=== PATIENT | female | born 1935 | race Two or more races ===

== ENCOUNTER 2017-12-22 14:28 | Inpatient (IN) | payer MEDICAID, OTHER ==
--- NOTE | 2017-12-22 15:11 | EDPHY ---
H & P Stated Complaint: Left hip pain - Personal History Current Tetanus/Diphtheria Vaccine: Yes - Medical/Surgical History Hx Asthma: No Hx Chronic Respiratory Disease: No Hx Diabetes: No Hx Cardiac Disease: Yes Hx Renal Disease: No Hx Cirrhosis: No Hx Alcoholism: No Other PMH: Alzheimer's - Social History Smoking Status: Never smoked Time Seen by Provider: 12/22/17 14:49 HPI/ROS: CHIEF COMPLAINT: Left lower extremity pain HISTORY OF PRESENT ILLNESS: 82-year-old female history of dementia arrives via private vehicle with family who drove the patient up from [place] yesterday. Patient has a history of dementia. The daughter lives in the [place] area and learned that the patient was having progressive difficulty in ambulating while in [place]. Unknown if history of trauma or not although new ecchymosis was noted to her left lower extremity. The daughter has relocated the patient to [place], attempted to have her fly from [place] however this was not possible due to her left hip pain and patient was subsequently driven and arrived last night. The patient is unable to bear any weight in the family states that they are unable to care for her due to her left lower extremity pain. There are no reports of head or other injury. Family notes that she is mentating at baseline PRIMARY CARE PROVIDER: In [place] REVIEW OF SYSTEMS: 10 systems reviewed and negative with the exception of the elements mentioned in the history of present illness PAST MEDICAL & SURGICAL HISTORY: Hypertension. Hyperlipidemia. Dementia. cholecystectomy SOCIAL HISTORY: Relocated from [place] less than 24 hr ago PHYSICAL EXAM (Prior to examination, patient consented to physical exam, hands were washed and my usual and customary physical exam procedures followed) 1) GENERAL: Well-developed, well-nourished, alert and oriented. Appears to be in no acute distress. 2) HEAD: Normocephalic, atraumatic 3) HEENT: Pupils equal, round, reactive to light bilaterally. Sclera anicteric. 4) NECK: Full range of motion, no meningeal signs. 5) LUNGS: Clear auscultation bilaterally, no wheezes, no rhonchi, no retractions. 6) HEART: Regular rate and rhythm, no murmur, no heave, no gallop. 7) ABDOMEN: No guarding, no rebound, no focal tenderness, negative McBurney's, negative Chin's, negative Rovsing's, negative peritoneal sign, 8) MUSCULOSKELETAL: Left lower extremity: Tender to palpation left buttock with associated ecchymosis and soft compartments, tender to palpation left greater trochanteric region with no visible signs of trauma to said location, tender to palpation mid lateral femur with ecchymosis, tender to palpation left lateral knee with no visible signs of trauma. Soft compartments throughout. Distally nontender with DP PT pulses present and brisk. No shortening or malrotation. Otherwise, Moving all extremities, no focal areas of tenderness, no obvious trauma. No peripheral edema or discoloration. 9) BACK: No CVA tenderness, no midline vertebral tenderness, no fluctuance, no step-off, no obvious trauma, no visual or palpable abnormality. 10) SKIN: No rash, no petechiae. 11) Psychiatric: Patient is oriented X 3, there is no agitation. DIFFERENTIAL DIAGNOSIS: In no particular order including but not limited to fracture, sprain, strain, dislocation, failure to thrive (Abigail,Devon Rebecca) Constitutional: Initial Vital Signs Temperature (C) 36.6 C 12/22/17 14:39 Heart Rate 110 H 12/22/17 14:39 Respiratory Rate 18 12/22/17 14:39 Blood Pressure 141/86 H 12/22/17 14:39 O2 Sat (%) 98 12/22/17 14:39 O2 Delivery Mode Room Air Allergies/Adverse Reactions: No Known Allergies Allergy (Unverified 12/22/17 14:45) Home Medications: Medication Instructions Recorded Aspirin [Aspirin 81mg (*)] 81 mg PO DAILY 12/22/17 Atorvastatin Calcium [Lipitor 20 20 mg PO HS 12/22/17 mg (*)] Hydrocodone/APAP 5/325 [Fossil 1 tab PO Q6H PRN 12/22/17 5/325 (*)] LORazepam [Ativan (*)] 1 mg PO TID PRN 12/22/17 Lisinopril [Zestril 20 mg (*)] 20 mg PO DAILY 12/22/17 Metoprolol Succinate Xr [Toprol Xl 50 mg PO DAILY 12/22/17 50 mg (*)] Pantoprazole Sodium [Protonix 40mg 40 mg PO DAILY 11/06/18 (*)] Sertraline HCl [Zoloft 100mg (*)] 50 mg PO DAILY 12/22/17 Ticagrelor [Brilinta] 90 mg PO BID 12/22/17 Medical Decision Making - Diagnostics EKG Interpretation: EKG interpreted by me reveals normal sinus rhythm, rate 86, right bundle branch block. Interpretation: Abnormal EKG (Claire Vasquez) ED Course/Re-evaluation: This patient was seen and examined by me. She presents with advanced dementia and inability to ambulate. Complaining of left hip pain. X-ray reveals no evidence of fracture. She is also complaining of left lower quadrant pain. Abdomen is benign. Left lower extremity-multiple areas of ecchymosis anteriorly on the thigh, passive hip range of motion without apparent pain. I agree with [facility]' assessment and plan. (Claire Vasquez) 3:10 p.m.: Anticipate more than likely admission to the hospital as the patient is unable to ambulate, unable to care for herself. Patient is noted to have ecchymosis which appears subacute to the left lower extremity with associated pain. Will obtain imaging studies. Discussed case with secondary supervising physician Dr. Claire Vasquez in the ER and also consulted with the emergency department catalytic case operator 354 pm: Re-evaluation. Patient now complaining of abdominal pain. She is tender to palpation left lower quadrant. Will obtain CT imaging of abdomen pelvis evaluate possible intra-abdominal pathology such as diverticulitis as well as increased imaging the osseous structures 405 pm: Dr Vasquez consulted with hospitalist Dr Trivedi who will admit patient ( Devon Hayes) - Data Points Laboratory Results: Laboratory Results 12/22/17 15:30 12/22/17 15:30 Medications Given: Hydrocodone Bitart/Acetaminophen (Fossil 5/325) 1 tab PO Q6H PRN PRN Reason: Pain, Moderate Stop: 01/01/18 16:52 Last Admin: 12/23/17 16:16 Dose: 1 tab Aspirin (Aspirin) 81 mg PO DAILY WILBERTO Stop: 06/21/18 08:59 Last Admin: 12/23/17 10:14 Dose: 81 mg Atorvastatin Calcium (Lipitor) 20 mg PO HS WILBERTO Stop: 06/20/18 20:59 Last Admin: 12/23/17 20:20 Dose: 20 mg Enoxaparin Sodium (Lovenox) 40 mg SC DAILY WILBERTO Stop: 06/21/18 08:59 Last Admin: 12/23/17 10:20 Dose: 40 mg Lisinopril (Zestril) 20 mg PO DAILY WILBERTO Stop: 06/21/18 08:59 Last Admin: 12/23/17 10:14 Dose: 20 mg Lorazepam (Ativan) 1 mg PO TID PRN PRN Reason: Anxiety Stop: 06/20/18 16:52 Last Admin: 12/23/17 20:20 Dose: 1 mg Metoprolol Succinate (Toprol Xl) 50 mg PO DAILY WILBERTO Stop: 06/21/18 08:59 Last Admin: 12/23/17 10:15 Dose: 50 mg Miscellaneous Information (Patch Removal) 1 ea TD DAILY21 [facility] Stop: 06/21/18 20:59 Last Admin: 12/24/17 04:54 Dose: 1 ea Miscellaneous Medication (Icy Hot Lidocaine/Menthol 4%/1% Patch) 1 patch TD DAILY WILBERTO Stop: 06/21/18 16:14 Last Admin: 12/23/17 16:16 Dose: 1 patch Pantoprazole Sodium (Protonix) 40 mg PO DAILY WILBERTO Stop: 06/21/18 08:59 Last Admin: 12/23/17 10:16 Dose: 40 mg Senna/Docusate Sodium (Senokot-S) 1 - 2 tab PO BID WILBERTO PRN Reason: Protocol Stop: 06/21/18 20:59 Last Admin: 12/23/17 20:20 Dose: 2 tab Sertraline HCl (Zoloft) 50 mg PO DAILY WILBERTO Stop: 06/21/18 08:59 Last Admin: 12/23/17 10:16 Dose: 50 mg Ticagrelor (Brilinta) 90 mg PO BID WILBERTO Stop: 06/20/18 20:59 Last Admin: 12/23/17 20:20 Dose: 90 mg Discontinued Medications Influenza Virus Vaccine Quadrival (Flulaval Quad [id number] (6mo+)) 0.5 ml IM .ONCE ONE Stop: 12/23/17 17:01 Last Admin: 12/23/17 18:04 Dose: 0.5 ml Pneumococcal 13-Valent Conj Vacc (Prevnar 13 Syringe) 0.5 ml IM .ONCE ONE Stop: 12/23/17 17:01 Last Admin: 12/23/17 18:06 Dose: 0.5 ml Departure - Departure Disposition: [facility] [place] Inpatient Acute Clinical Impression: Left hip pain Condition: Fair
[2017-12-22 15:45] LABS: PLATELET COUNT 176 10^3/uL (150-400)
[2017-12-22] MEDS ORDERED: IOPAMIDOL (ISOVUE-300) 100 ML BTL ONE (16:12)
--- NOTE | 2017-12-22 16:18 | CPEKG ---
Test Reason : OPEN Blood Pressure : / mmHG Vent. Rate : 086 BPM Atrial Rate : 087 BPM P-R Int : 175 ms QRS Dur : 122 ms QT Int : 388 ms P-R-T Axes : 056 203 052 degrees QTc Int : 464 ms Sinus rhythm Right bundle branch block Confirmed by Claire Vasquez ([id number]) on 12/22/2017 4:18:34 PM Referred By: Confirmed By:Claire Vasquez
--- NOTE | 2017-12-22 16:29 | ASMTCMCOM ---
CM Note CM Note Notes: Patient is Slovak speaking only and is accompanied by her grandson and 2 of her 3 daughters. Alissa is the daughter patient is now living with in [place]. Per Alissa, patient usually gets around pretty well but they are uncertain as to how long patient has had pain/difficulty ambulating. Patient had been living with Alissa's sister in [place] and family literally drove patient (relocated) to [place] yesterday. At this time hip and knee x-rays are pending and family is aware that patient will likely be admitted. patient does have Medicare and financial counselor has been in to start process for [place] Medicaid. I disccused potential scenerios with Alissa regarding whether patient may/may not need surgery and/or what type of aftercare may be indicated. Family is adament about "taking care of mom (patient) at home". I assured Alissa that CM would work closely with them regarding discharge planning and informed her that if SNF was "suggested", for example, "after surgey", this would be a temporary situation until patient was strong enough to go home with HH services. Alissa states that she is able to be home with patient [employer] and will be available for coordination of discharge planning/care as needed CM to follow Date Signed: 12/22/2017 04:29 PM Electronically Signed By:Mary Munoz RN
[2017-12-22] MEDS ORDERED: ONDANSETRON 4 MG/2 ML VIAL IVP PRN (16:53)
--- NOTE | 2017-12-22 17:42 | GHP ---
DATE OF ADMISSION: 12/22/2017 CHIEF COMPLAINT: Unable to walk. HISTORY OF PRESENT ILLNESS: This is an 82-year-old Belarusian-speaking female who arrived from [place], [place] by car yesterday. She had been living with her daughter in [place] when her [place] based family moved her out to [place] since they did not think she was getting adequate care in [place]. Apparently, the patient has not been able to walk for 2 weeks. She has not had a witnessed fall, but they believe that she has sustained a fall. Her appetite has been decreased. She has had no nausea or vomiting. Her last bowel movement was yesterday. PAST MEDICAL HISTORY: 1. Dementia. 2. Coronary artery disease with stent placement. 3. Hypertension. 4. Cholecystectomy. HOME MEDICATIONS: Reviewed, refer to [facility] for details next. ALLERGIES: No known drug allergies. SOCIAL HISTORY: The patient denies any alcohol, tobacco or illicit drug use. FAMILY HISTORY: Reviewed and noncontributory. REVIEW OF SYSTEMS: A comprehensive 10-point review of systems was done and is negative except for as mentioned in the HPI and below. CONSTITUTIONAL: Denies fevers, chills or sweats. CARDIOVASCULAR: The patient denies chest pain. PULMONARY: No complaints. GI: The patient reports generalized abdominal pain. PHYSICAL EXAMINATION: VITAL SIGNS: Blood pressure 141/86, pulse of 110, respiratory rate 18,O2 saturation 98% on room air, temperature afebrile. GENERAL: No acute distress. Frail appearing. HEAD: Normocephalic, atraumatic. EYES: PERRLA. Sclerae are anicteric. MOUTH: Moist mucous membranes. NECK: Supple. No lymphadenopathy. CARDIOVASCULAR: S1, S2. No JVD. No lower extremity edema. PULMONARY: Lungs are clear. No wheezes, rales or rhonchi. ABDOMEN: Soft, mildly distended. There is no guarding or rebound tenderness. Normoactive bowel sounds. EXTREMITIES: No clubbing or cyanosis. There is some muscle wasting on the left side. The patient has pain with flexion and abduction of the right hip. NEUROLOGIC: Cranial nerves 2 through 12 are grossly intact. SKIN: There is ecchymosis over the left lower hip. DIAGNOSTICS: WBC 6.1, hemoglobin 12.7, hematocrit 37.9 and platelets 176. Sodium 135, potassium 4.5, chloride 100, CO2 25, BUN 19, creatinine 0.7 and glucose 108. Hip x-ray: Preliminary read by myself does not show an obvious fracture, however, her bones do appear to be hyperlucent. CT of the abdomen and pelvis is currently pending. EKG was visualized and reviewed. Heart rate 86 beats per minute with a right bundle branch block. No acute ischemic changes. ASSESSMENT AND PLAN: This 82-year-old female is presenting with: 1. Inability to walk due to left hip pain. 2. Adult failure to thrive. 3. History of coronary artery disease with stent placement. 4. History of hypertension. 5. History of hyperlipidemia. 6. History of dementia. PLAN: 1. Admit to inpatient status given the patient is not safe to send home due to her inability to ambulate. We will order PT and OT evaluation. 2. Followup CT of the abdomen and pelvis. 3. Continue home blood pressure medicines. 4. Continue statin. 5. Continue antiplatelet medications. 6. The patient requests to be full code status. ADDENDUM: CT shows multiple compression fractures as well as urinary retention. Will send for UA and culture. Consider further imaging of the spine as indicated if pain not improving /[id number]/MODL MTDD
[2017-12-22] MEDS: HYDROCODONE/APAP 5/325 TAB PO PRN (17:44)
[2017-12-22] MEDS: LORazepam 1 MG TAB PO PRN (20:57)
[2017-12-22] MEDS: ATORVASTATIN CALCIUM 20 MG TAB PO SCH (20:57)
[2017-12-22] MEDS: TICAGRELOR 90 MG TAB PO SCH (21:41)
--- NOTE | 2017-12-23 09:35 | HOSPPROG ---
Hospitalist Progress Note Assessment/Plan: 82yo bermudian speaking F with h/o dementia, CAD s/p stent placement who recently moved to [place] to live with daughter (previously living in [place] with other daughter) presents with inability to walk. #Gait instability, falls: Neurologically intact. She does have several old rather severe compression fractures on CT but I don't think these are contributing to current presentation and she denies back pain. Reviewed left hip /knee x-rays without fracture. CT with right hip effusion but she is nontender in this area. Per patient's daughter, she believes patient has a fear of falling and that is why she has been less mobile than normal. - PT/OT - No indication for neurosurgery intervention/kyphoplasty or repeat imaging at this point - Check B12, TSH #Chronic encephalopathy/dementia: Alert but not oriented which is baseline for patient. Delirium precautions. #CAD s/p stents: Continue DAPT, statin, BB. #HTN: Controlled, continue ACEi. #GERD: PPI Diet: regular VTE ppx: high risk, LMWH Code: full Dispo: Remain inpatient, unsafe for discharge. Appreciate PT/OT assistance, may need SNF. Subjective: Spoke with patient and her daughter using bermudian interpretor. Patient denies back pain. Some discomfort in "legs" but unable to specify where. Otherwise denies complaints. Per daughter, she thinks patient has fallen several times recently based on some bruises. Objective: Vital Signs Temp Pulse Resp BP Pulse Ox 36.7 C 81 16 110/58 L 97 12/23/17 08:00 12/23/17 08:00 12/23/17 08:00 12/23/17 08:00 12/23/17 08:00 12/22/17 12/23/17 12/24/17 05:59 05:59 05:59 Intake Total 450 Output Total 2200 Balance -1750 - Physical Exam Constitutional: no apparent distress, not in pain Eyes: PERRL, anicteric sclera, EOMI Ears, Nose, Mouth, Throat: moist mucous membranes, hearing normal, ears appear normal, no oral mucosal ulcers Cardiovascular: regular rate and rhythym, no murmur, rub, or gallop Respiratory: no respiratory distress, no rales or rhonchi, clear to auscultation Gastrointestinal: normoactive bowel sounds, soft, non-tender abdomen, no palpable masses Genitourinary: parikh in urethra Skin: warm, No erythema Neurologic: other (alert but not oriented, 4+/5 strength in BLE, sensation to light touch intact, no ankle clonus, 2+ b/l patellar reflexes) Psychiatric: encephalopathic ICD10 Worksheet Patient Problems: Problems Problem Status Onset Left hip pain Acute
--- NOTE | 2017-12-23 09:54 | PDMN ---
Medical Necessity Medical necessity: Pt meets IP criteria per MD and [facility] (General discharge criteria); est los > 2 mn for ongoing tx and management of R hip effusion with gait instability and inability to ambulate and falls, chronic encephalopathy, and urinary retention requiring parikh; pt unsafe to DC home, requiring further monitoring, delirium precautions, and therapies. Comorbid advanced age, dementia, CAD
[2017-12-23] MEDS: LISINOPRIL 20 MG TAB PO SCH (10:14)
[2017-12-23] MEDS: ASPIRIN 81 MG CHEWABLE TAB PO SCH (10:14)
[2017-12-23] MEDS: METOPROLOL SUCCINATE XR 50 MG TAB PO SCH (10:15)
[2017-12-23] MEDS: SERTRALINE HCL 50 MG TAB PO SCH (10:16)
[2017-12-23] MEDS: TICAGRELOR 90 MG TAB PO SCH ×2 (10:16→20:20)
[2017-12-23] MEDS: HYDROCODONE/APAP 5/325 TAB PO PRN ×2 (10:16→16:16)
[2017-12-23] MEDS: PANTOPRAZOLE SODIUM 40 MG TAB PO SCH (10:16)
[2017-12-23] MEDS: ENOXAPARIN 40 MG/0.4 ML SYR SC SCH (10:20)
[2017-12-23] MEDS ORDERED: PNEUMOC 13-VAL CONJ-DIP CRM/PF 0.5 ML SYR (PREVNAR 13) IM ONE ×2 (14:00→17:00)
[2017-12-23] MEDS: LIDOCAINE 4%/MENTHOL 1% PATCH TD SCH (16:16)
[2017-12-23] MEDS ORDERED: BISACODYL 10 MG SUPP PR PRN (18:28)
[2017-12-23] MEDS ORDERED: LACTULOSE 20 GM/30 ML UDCUP PO PRN (18:28)
[2017-12-23] MEDS ORDERED: MAGNESIUM HYDROXIDE 30 ML UDCUP PO PRN (18:28)
[2017-12-23] MEDS ORDERED: POLYETHYLENE GLYCOL 3350 17 GM PKT PO PRN (18:28)
[2017-12-23] MEDS: SENNOSIDES/DOCUSATE SODIUM TAB PO SCH (20:20)
[2017-12-23] MEDS: ATORVASTATIN CALCIUM 20 MG TAB PO SCH (20:20)
[2017-12-23] MEDS: LORazepam 1 MG TAB PO PRN (20:20)
[2017-12-24] MEDS: PATCH REMOVAL 1 EA PATCH TD SCH ×2 (04:54→20:52)
[2017-12-24] MEDS: LIDOCAINE 4%/MENTHOL 1% PATCH TD SCH (09:09)
[2017-12-24] MEDS: ENOXAPARIN 40 MG/0.4 ML SYR SC SCH (09:15)
[2017-12-24] MEDS: HYDROCODONE/APAP 5/325 TAB PO PRN ×2 (09:16→15:55)
[2017-12-24] MEDS: SENNOSIDES/DOCUSATE SODIUM TAB PO SCH ×2 (09:16→20:52)
[2017-12-24] MEDS: SERTRALINE HCL 50 MG TAB PO SCH (09:17)
[2017-12-24] MEDS: TICAGRELOR 90 MG TAB PO SCH ×2 (09:17→20:51)
[2017-12-24] MEDS: PANTOPRAZOLE SODIUM 40 MG TAB PO SCH (09:17)
[2017-12-24] MEDS: LISINOPRIL 20 MG TAB PO SCH (09:17)
[2017-12-24] MEDS: ASPIRIN 81 MG CHEWABLE TAB PO SCH (09:17)
[2017-12-24] MEDS: METOPROLOL SUCCINATE XR 50 MG TAB PO SCH (09:18)
--- NOTE | 2017-12-24 11:07 | HOSPPROG ---
Hospitalist Progress Note Assessment/Plan: DIAGNOSES: 82yo latvian speaking F with h/o dementia, CAD s/p stent placement who recently moved to [place] to live with daughter (previously living in [place] with other daughter) presents with inability to walk. #Gait instability, ? of falls: * Difficult to determine if this is due to pain from bursitis and tensor fascia roland syndrome or whether something neurologic has occurred (see bladder issues discussed below) #Chronic encephalopathy/dementia: Alert but not oriented which is baseline for patient. Delirium precautions. # severe urine retention * I suspect this is primarily due to the fact that she does not empty her bladder more than about once a day, but could not rule out some other type of neurogenic bladder or other disorder, particularly since she complains of some bladder discomfort at home * She does have apparently some type of chronic pain and at home takes some low- dose narcotic which is probably making this worse; here in the hospital she is received 1 [place] tab 1-2 times daily #CAD s/p stents: Continue DAPT, statin, BB. #HTN: Controlled, continue ACEi. #GERD: PPI PLANS: * Remove White catheter * Trial of hourly timed voids monitoring output and retention; will discontinue her [place] at this time * Depending on how successful this is at getting her bladder voided, may need to consider urodynamic testing in the outpatient clinic * I spoke in detail with physical therapy would like to get her up on her feet and determine whether it seems like pain or other specific issues are inhibitory for ambulation at this time * Physical therapy modalities for trochanteric bursitis and tensor fascia roland issues; if ongoing pain or pain is too much for her to ambulate I can do an injection * Will need to determine whether not the family can safely manage her at home at this time, which is their wish * Ongoing case management efforts; I think would be helpful to set up a palliative care discussion with the patient's family and will talk to the more about this SUBJECTIVE: Patient at this time states no pain no other discomforts just feels tired Her memory issues are poor enough that is hard to assess how accurately she is able to tell me about symptoms OBJECTIVE Vitals reviewed: Vital Signs all stable no fever Exam: alert pleasant relaxed, answers questions to her ability given her dementia; obvious dementia as is her baseline skin warm dry color ok resps not labored lungs clear BSs heart regular abd soft nondistended nontender, bowel sounds present limbs there is tenderness over the left greater trochanter and the left tensor fascia roland. Otherwise there is normal passive range of motion of the hip without pain, and I am unable to find sciatica although clarifying this given the dementia is difficult White catheter in place well secured with clear yellow urine draining iv site ok I have reviewed the images of her x-rays and her CT scan and agree there is no evidence of fracture. I reviewed all the laboratory test results from her hospital stay here Objective: Vital Signs Temp Pulse Resp BP Pulse Ox 36.6 C 67 16 107/54 L 96 12/24/17 07:32 12/24/17 09:18 12/24/17 07:32 12/24/17 09:18 12/24/17 07:32 12/23/17 12/24/17 12/25/17 06:59 06:59 06:59 Intake Total 450 200 Output Total 2200 650 Balance -1750 -450 - Time Spent With Patient Time Spent with Patient: greater than 35 minutes Time Spent with Patient: Greater than 35 minutes spent on this patients care, greater than 50% of time spent counseling, educating, and coordinating care regarding the above mentioned plan. ICD10 Worksheet Patient Problems: Problems Problem Status Onset Left hip pain Acute
[2017-12-24] MEDS: LORazepam 1 MG TAB PO PRN ×2 (14:16→23:45)
[2017-12-24] MEDS ORDERED: NS 500 ML IV ONE (20:33)
[2017-12-24] MEDS: ATORVASTATIN CALCIUM 20 MG TAB PO SCH (20:51)
[2017-12-25] MEDS: ENOXAPARIN 40 MG/0.4 ML SYR SC SCH ×2 (09:00→10:34)
[2017-12-25] MEDS ORDERED: LIDOCAINE 2% 2 ML INJ IF ONE (09:06)
[2017-12-25] MEDS ORDERED: DEPO METHYLPREDNISOLONE 40 MG/ML SDV IM ONE (09:07)
[2017-12-25] MEDS: TICAGRELOR 90 MG TAB PO SCH ×2 (10:33→21:36)
[2017-12-25] MEDS: ASPIRIN 81 MG CHEWABLE TAB PO SCH (10:33)
[2017-12-25] MEDS: SERTRALINE HCL 50 MG TAB PO SCH (10:33)
[2017-12-25] MEDS: PANTOPRAZOLE SODIUM 40 MG TAB PO SCH (10:33)
[2017-12-25] MEDS: SENNOSIDES/DOCUSATE SODIUM TAB PO SCH ×2 (10:33→21:37)
[2017-12-25] MEDS: METOPROLOL SUCCINATE XR 50 MG TAB PO SCH (10:34)
[2017-12-25] MEDS: LIDOCAINE 4%/MENTHOL 1% PATCH TD SCH (10:34)
[2017-12-25] MEDS: LISINOPRIL 20 MG TAB PO SCH (10:34)
--- NOTE | 2017-12-25 12:50 | HOSPPROG ---
Hospitalist Progress Note Assessment/Plan: DIAGNOSES: 82yo pashto speaking F with h/o dementia, CAD s/p stent placement who recently moved to [place] to live with daughter (previously living in [place] with other daughter) presents with inability to walk. #Gait instability, ? of falls: * Difficult to determine if this is due to pain from bursitis and tensor fascia roland syndrome or whether something neurologic has occurred (see bladder issues discussed below) #Chronic encephalopathy/dementia: Alert but not oriented which is baseline for patient. # severe urine retention * I suspect this is primarily due to the fact that she does not empty her bladder more than about once a day, but could not rule out some other type of neurogenic bladder or other disorder, particularly since she complains of some bladder discomfort at home * She does have apparently some type of chronic pain and at home takes some low- dose narcotic which is probably making this worse; here in the hospital she is received 1 [place] tab 1-2 times daily #CAD s/p stents: Continue DAPT, statin, BB. #HTN: Controlled, continue ACEi. #GERD: PPI PLANS: * For now continue without White catheter * Continue Trial of hourly timed voids monitoring output and retention; will discontinue her [place] at this time * Depending on how successful this is at getting her bladder voided, may need to consider urodynamic testing in the outpatient clinic, she may need chronic White catheterization * Will perform trochanteric bursa injection today to see if this reduces her pain and allows better mobility * Physical therapy modalities for trochanteric bursitis and tensor fascia roland issues; * Will need to determine whether not the family can safely manage her at home at this time, which is their wish * Palliative care consult ordered at family's request * Ongoing case management efforts SUBJECTIVE: Today has had significant pain at left hip area will trying to walk and was unable to stand or walk with assistance. She has also had apparently some low back pain without radiation. No other new symptoms We have attempted scheduled bladder voids on bedside commode over the last 24 hr and so far she has not been able to have any spontaneous voids and is required some straight cath voids. More family members here here today and I did review with him palliative care ideas in options and recommended palliative consult and they are agreeable to this OBJECTIVE Vitals reviewed: Vital Signs all stable no fever Exam: alert pleasant relaxed, answers questions to her ability given her dementia; obvious dementia as is her baseline skin warm dry color ok resps not labored lungs clear BSs heart regular abd soft nondistended nontender, bowel sounds present limbs again there is greater trochanter tenderness consistent with bursitis today but nothing to suggest joint pathology per se iv site ok I have reviewed the images of her x-rays and her CT scan and agree there is no evidence of fracture. I reviewed all the laboratory test results from her hospital stay here Objective: Vital Signs Temp Pulse Resp BP Pulse Ox 36.8 C 62 16 103/42 L 97 12/25/17 12:00 12/25/17 12:00 12/25/17 12:00 12/25/17 12:00 12/25/17 12:00 12/24/17 12/25/17 12/26/17 06:59 06:59 06:59 Intake Total 200 1100 Output Total 650 325 0 Balance -450 775 0 - Time Spent With Patient Time Spent with Patient: greater than 35 minutes Time Spent with Patient: Greater than 35 minutes spent on this patients care, greater than 50% of time spent counseling, educating, and coordinating care regarding the above mentioned plan. ICD10 Worksheet Patient Problems: Problems Problem Status Onset Left hip pain Acute
--- NOTE | 2017-12-25 13:12 | HOSPPROG ---
Hospitalist Progress Note Assessment/Plan: PROCEDURE NOTE Procedure: Injection of anesthetic and steroid into left greater trochanteric bursa Indication: Painful trochanteric bursitis unresponsive to efforts here at physical therapy, pain limiting mobility Procedure was described in detail with the patient and family at the bedside including indications, details of procedure, risks and benefits and all the questions answered. Patient and family gave verbal consent The left lateral hip area was sterilely prepped. The left greater trochanter was injected with 1 cc of 2% lidocaine and 40 mg of methylprednisolone via a 22 gauge needle. There are no complications or issues with the procedure which was well tolerated by the patient. No bleeding There was notable decrease in tenderness at the greater trochanter after the injection Objective: Vital Signs Temp Pulse Resp BP Pulse Ox 36.8 C 62 16 103/42 L 97 12/25/17 12:00 12/25/17 12:00 12/25/17 12:00 12/25/17 12:00 12/25/17 12:00 12/24/17 12/25/17 12/26/17 06:59 06:59 06:59 Intake Total 200 1100 Output Total 650 325 0 Balance -450 775 0 ICD10 Worksheet Patient Problems: Problems Problem Status Onset Left hip pain Acute
--- NOTE | 2017-12-25 13:47 | ASMTCMCOM ---
CM Note CM Note Notes: Therapies have been have been unsuccessful in helping pt ambulate without pain. Pt tolerated steroid injection into hip today. Hopefully this will allow her to participate in therapies and get recommendations for dc poc. Sounds like the preference is for pt to go home with patsy Maxwell. DC Plan: TBD Date Signed: 12/25/2017 01:46 PM Electronically Signed By:Carey Rosales RN
[2017-12-25] MEDS ORDERED: predniSONE 20 MG TAB PO ONE (18:18)
[2017-12-25] MEDS: traMADol 50 MG TAB PO PRN (18:20)
[2017-12-25] MEDS: ATORVASTATIN CALCIUM 20 MG TAB PO SCH (21:36)
[2017-12-25] MEDS: PATCH REMOVAL 1 EA PATCH TD SCH (21:38)
--- NOTE | 2017-12-26 07:30 | CPEKG ---
Test Reason : OPEN Blood Pressure : / mmHG Vent. Rate : 066 BPM Atrial Rate : 066 BPM P-R Int : 207 ms QRS Dur : 130 ms QT Int : 429 ms P-R-T Axes : 134 020 147 degrees QTc Int : 450 ms Sinus rhythm RBBB Abnormal T, consider ischemia, lateral leads Confirmed by Pito Chi ([id number]) on 12/26/2017 7:30:06 AM Referred By: Confirmed By:Pito Chi
[2017-12-26] MEDS: SENNOSIDES/DOCUSATE SODIUM TAB PO SCH ×2 (08:58→21:38)
[2017-12-26] MEDS: TICAGRELOR 90 MG TAB PO SCH ×2 (08:59→21:38)
[2017-12-26] MEDS: LISINOPRIL 20 MG TAB PO SCH (08:59)
[2017-12-26] MEDS: PANTOPRAZOLE SODIUM 40 MG TAB PO SCH (09:00)
[2017-12-26] MEDS: SERTRALINE HCL 50 MG TAB PO SCH (09:00)
[2017-12-26] MEDS: METOPROLOL SUCCINATE XR 50 MG TAB PO SCH (09:00)
[2017-12-26] MEDS: ASPIRIN 81 MG CHEWABLE TAB PO SCH (09:01)
[2017-12-26] MEDS: LIDOCAINE 4%/MENTHOL 1% PATCH TD SCH (09:02)
[2017-12-26] MEDS: ENOXAPARIN 40 MG/0.4 ML SYR SC SCH (09:10)
[2017-12-26] MEDS: traMADol 50 MG TAB PO PRN (15:29)
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
[2017-12-26] MEDS ORDERED: predniSONE 20 MG TAB PO ONE (17:28)
[2017-12-26] MEDS ORDERED: QUEtiapine FUMARATE 25 MG TAB PO PRN (17:28)
[2017-12-26] MEDS: ATORVASTATIN CALCIUM 20 MG TAB PO SCH (21:38)
[2017-12-26] MEDS: PATCH REMOVAL 1 EA PATCH TD SCH (21:39)
[2017-12-27] MEDS: ASPIRIN 81 MG CHEWABLE TAB PO SCH (08:35)
[2017-12-27] MEDS: SERTRALINE HCL 50 MG TAB PO SCH (08:35)
[2017-12-27] MEDS: SENNOSIDES/DOCUSATE SODIUM TAB PO SCH ×2 (08:35→20:42)
[2017-12-27] MEDS: traMADol 50 MG TAB PO PRN (08:36)
[2017-12-27] MEDS: PANTOPRAZOLE SODIUM 40 MG TAB PO SCH (08:36)
[2017-12-27] MEDS: TICAGRELOR 90 MG TAB PO SCH ×2 (08:36→20:42)
[2017-12-27] MEDS: ENOXAPARIN 40 MG/0.4 ML SYR SC SCH (10:11)
[2017-12-27] MEDS: LIDOCAINE 4%/MENTHOL 1% PATCH TD SCH (11:48)
[2017-12-27] MEDS: METOPROLOL SUCCINATE XR 50 MG TAB PO SCH (11:55)
[2017-12-27] MEDS: LISINOPRIL 20 MG TAB PO SCH (11:55)
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
[2017-12-27] MEDS: ACETAMINOPHEN 500 MG TAB PO SCH ×4 (15:25→22:54)
[2017-12-27] MEDS: TAMSULOSIN HCL 0.4 MG CAP PO SCH (16:27)
[2017-12-27] MEDS: ATORVASTATIN CALCIUM 20 MG TAB PO SCH (20:42)
[2017-12-27] MEDS: PATCH REMOVAL 1 EA PATCH TD SCH (20:42)
[2017-12-27] MEDS: MELATONIN 3 MG TAB PO PRN (22:54)
[2017-12-28] MEDS: ACETAMINOPHEN 500 MG TAB PO SCH ×3 (07:04→22:24)
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
[2017-12-28] MEDS: ASPIRIN 81 MG CHEWABLE TAB PO SCH (11:37)
[2017-12-28] MEDS: METOPROLOL SUCCINATE XR 50 MG TAB PO SCH (11:37)
[2017-12-28] MEDS: LISINOPRIL 20 MG TAB PO SCH (11:38)
[2017-12-28] MEDS: TICAGRELOR 90 MG TAB PO SCH ×2 (11:38→22:24)
[2017-12-28] MEDS: TAMSULOSIN HCL 0.4 MG CAP PO SCH (11:38)
[2017-12-28] MEDS: SERTRALINE HCL 50 MG TAB PO SCH (11:38)
[2017-12-28] MEDS: PANTOPRAZOLE SODIUM 40 MG TAB PO SCH (11:38)
[2017-12-28] MEDS: ENOXAPARIN 40 MG/0.4 ML SYR SC SCH (11:41)
[2017-12-28] MEDS: LIDOCAINE 4%/MENTHOL 1% PATCH TD SCH (11:41)
--- NOTE | 2017-12-28 12:17 | ASMTCMCOM ---
CM Note CM Note Notes: Pts case discussed w/ JANETTE Oscar. CM met w/ pt and daughter Alissa for dispo planning. Alissa reports that she will take pt home when medically stable to provide 08/09 supervision/caregiving. Family will provide care. Alissa has agreed to go w/ [facility]. CM to follow. Plan: Home w/ 08/09 caregivers alfred sepulveda Date Signed: 12/28/2017 12:16 PM Electronically Signed By:NICHOLE Dorsey
[2017-12-28] MEDS: SENNOSIDES/DOCUSATE SODIUM TAB PO SCH ×2 (12:18→22:24)
[2017-12-28] MEDS: MELATONIN 3 MG TAB PO PRN (22:24)
[2017-12-28] MEDS: ATORVASTATIN CALCIUM 20 MG TAB PO SCH (22:24)
[2017-12-28] MEDS: PATCH REMOVAL 1 EA PATCH TD SCH (22:36)
[2017-12-29] MEDS: ACETAMINOPHEN 500 MG TAB PO SCH ×2 (07:06→09:01)
[2017-12-29] MEDS ORDERED: ENOXAPARIN 30 MG/0.3 ML SYR SC SCH (09:00)
[2017-12-29] MEDS: LIDOCAINE 4%/MENTHOL 1% PATCH TD SCH (09:01)
[2017-12-29] MEDS: ASPIRIN 81 MG CHEWABLE TAB PO SCH (09:02)
[2017-12-29] MEDS: LISINOPRIL 20 MG TAB PO SCH (09:03)
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
[2017-12-29] MEDS: METOPROLOL SUCCINATE XR 50 MG TAB PO SCH (09:05)
[2017-12-29] MEDS: TAMSULOSIN HCL 0.4 MG CAP PO SCH (09:07)
[2017-12-29] MEDS: TICAGRELOR 90 MG TAB PO SCH (09:07)
[2017-12-29] MEDS: PANTOPRAZOLE SODIUM 40 MG TAB PO SCH (09:07)
[2017-12-29] MEDS: SERTRALINE HCL 50 MG TAB PO SCH (09:07)
--- NOTE | 2017-12-29 09:10 | PDIAF ---
- Diagnosis Diagnosis: urinary retention Code Status: Do Not Resuscitate - Medication Management Discharge Medications: electronically signed and located in the Home Medication List. - Orders Services needed: Home Care, Registered Nurse, Physical Therapy, Occupational Therapy Home Care Face to Face: I certify that this patient was under my care and that I had the required [id number] encounter meeting the encounter requirements on the discharge day. My findings support the fact that the patient is homebound as defined in Home Care Face to Face Continued: CMS Chapter 7 Medicare Benefits Manual 30.1.1 , The condition of the patient is such that there exists a normal inability to leave home and consequently, leaving home would require a considerable and taxing effort. - Follow Up Care Current Providers and Referrals: NONE *PRIMARY CARE P,. [Primary Care Provider] - As per Instructions
[2017-12-29 09:17] VITALS: BP 109/55
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
--- NOTE | 2017-12-29 09:48 | ASMTLACE ---
LACE Length of stay for Answers: 7-13 days current admission Acuity / Level of Answers: Yes Care: Did the patient have an inpatient admission? Comorbidities - select Answers: Coronary Artery Disease all that apply Dementia Other Notes: HTN; HLD # of Emergency department Answers: 1-2 visits in the last 6 months Score: 15 Date Signed: 12/29/2017 09:47 AM Electronically Signed By:NICHOLE Dorsey
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
[2017-12-29] MEDS: SENNOSIDES/DOCUSATE SODIUM TAB PO SCH (11:45)
--- NOTE | 2017-12-29 12:26 | ASMTCMCOM ---
CM Note CM Note Notes: Pt does not have a PCP at this time. Pt had an appointment with physician house calls. Kamila will be closely in touch w/ pt until care is establish w/ a provider. Date Signed: 12/29/2017 12:26 PM Electronically Signed By:NICHOLE Dorsey
--- NOTE | 2017-12-30 11:01 | CPEKG ---
Test Reason : OPEN Blood Pressure : / mmHG Vent. Rate : 066 BPM Atrial Rate : 066 BPM P-R Int : 207 ms QRS Dur : 130 ms QT Int : 429 ms P-R-T Axes : 134 020 147 degrees QTc Int : 450 ms Sinus rhythm RBBB Abnormal T, consider ischemia, lateral leads Confirmed by Dave Singh ([id number]) on 12/30/2017 11:01:05 AM Referred By: Confirmed By:Dave Singh
== END 2017-12-29 13:10 | disposition home health service (06) | DRG 558 ==
LOC: OBSVTOIN 16:54 → F3E 17:20
PROVIDERS: ADMIT Family Medicine; ATTEND Family Medicine
PROC: 3E0U3BZ Introduction of Anesthetic Agent into Joints, Percutaneous Approach (ICD-10-PCS; principal; 2017-12-25)
DX: M70.62 Trochanteric bursitis, left hip (principal); R33.9 Retention of urine, unspecified; F03.90 Unspecified dementia, unspecified severity, without behavioral disturbance, psychotic disturbance, mood disturbance, and anxiety; I25.10 Atherosclerotic heart disease of native coronary artery without angina pectoris; I10 Essential (primary) hypertension; Z23 Encounter for immunization; Z66 Do not resuscitate; Z95.5 Presence of coronary angioplasty implant and graft
CPT/HCPCS: 82607-90; 97162-GP; 97166-GO; 97530-GP; G0008; G0009; G8978-GP-CM; G8979-GP-CJ; G8987-GO-CL; G8988-GO-CK; J1030; J1650; J7512; Q9967

== ENCOUNTER 2018-02-25 19:17 | Emergency (ER) | payer OTHER, MEDICAID ==
--- NOTE | 2018-02-25 19:47 | EDPHY ---
HPI/HX/ROS/PE/MDM Narrative: CHIEF COMPLAINT: Fall, left hip pain HPI: This patient is an 82 year old female with history of Alzheimer's, GERD, hypertension, depression. She presents with left hip pain following an unwitnessed fall this morning around 11:00am. This was likely a mechanical fall as the patient tried to get up without assistance. Her daughter was downstairs and heard her yell out in pain. She found the patient lying on the floor on her left side. The patient declined EMS evaluation at that time, and her daughter and son-in-law were able to help her into a chair. She had been unable to walk since this incident, though she is able to move her legs. She has tried Tylenol for pain relief, but this did not relieve her discomfort. She usually does not want to go to the doctor, but requested evaluation today. She currently complains of ongoing left hip pain. She denies any other injuries. No fever, chest pain, shortness of breath, syncope, or other associated symptoms. REVIEW OF SYSTEMS: A comprehensive 10 system review of systems is otherwise negative aside from elements mentioned in the history of present illness and medical decision making. PMH: Alzheimer's, GERD, hypertension, depression. SOCIAL HISTORY: Family at bedside. Lives with family. Does not abuse tobacco, drugs, or alcohol. PHYSICAL EXAM: General:Patient is alert, in no acute distress. ENT:Eyes are normal to inspection. ENT inspection normal. Neck: Normal inspection. Full range of motion. Respiratory:No respiratory distress. Breath sounds normal bilaterally. Cardiovascular: Regular rate and rhythm. Strong peripheral pulses. Normal cap refill. Abdomen:The abdomen is nontender to palpation. There are no peritoneal signs. There are normal bowel sounds. Back: Normal to inspection. No tenderness to palpation. Skin: Normal color. No rash. Warm and dry. Extremities: Left leg: Tenderness along left lateral hip. No shortening or external rotation. Otherwise normal appearance of other extremities with full range of motion. Neuro: Oriented x3. Normal motor function. Normal sensory function. ED Course: This 82 year old female presents with left hip pain following a mechanical fall this morning. On exam, she is tender over the left lateral hip. There is no obvious shortening or external rotation. Plan for x-ray of the left hip to rule out acute osseous abnormalities. 20:30 X-ray of left hip is negative for acute fracture. Reassessed. Discussed imaging results. Patient and family are relieved that there is no evidence of fracture today. Plan to discharge home in good condition with referral to weapons specialist. Follow up and return precautions discussed. The family is comfortable with this plan. MDM: This patient presents with hip pain after fall, but XRs are negative. I considered additional imaging, but patient has history of relatively recent admission to hospital for similar scenario at same site, which was thought to be inflammatory. Patient is able to walk and family is comfortable going home. - Data Points Imaging Results: Imaging Impressions Hip X-Ray 02/25/18 19:48 Impression: 1. Diffuse bone demineralization. 2. Old healed left inferior ischial pubic ramus fracture contour deformity, similar to previous studies in December 2017. 3. There is no acute left hip fracture identified. If there is a high clinical concern, either CT or MR imaging could be considered. Imaging: I viewed and interpreted images myself General Time Seen by Provider: 02/25/18 19:31 Initial Vital Signs: Initial Vital Signs Temperature (C) 36.8 C 02/25/18 19:24 Heart Rate 97 02/25/18 19:24 Respiratory Rate 18 02/25/18 19:24 Blood Pressure 118/66 02/25/18 19:24 O2 Sat (%) 96 02/25/18 19:24 O2 Delivery Mode Room Air Allergies/Adverse Reactions: No Known Allergies Allergy (Unverified 12/22/17 14:45) Home Medications: Medication Instructions Recorded Aspirin [Aspirin 81mg (*)] 81 mg PO DAILY 12/22/17 Lisinopril [Zestril 20 mg (*)] 20 mg PO DAILY 12/22/17 Metoprolol Succinate Xr [Toprol Xl 50 mg PO DAILY 12/22/17 50 mg (*)] Pantoprazole Sodium [Protonix 40mg 40 mg PO DAILY 12/22/17 (*)] Ticagrelor [Brilinta] 90 mg PO BID 12/22/17 Acetaminophen [Tylenol ES 500 mg 1,000 mg PO Q8HRS tab 12/29/17 (*)] Lidocaine 4%/Menthol 1% [Icy Hot 1 patch TD DAILY patch 12/29/17 Lidocaine/Menthol 4%/1% Patch (*)] Tamsulosin HCl [Flomax 0.4 MG (*)] 0.4 mg PO DAILY #30 cap 12/29/17 Departure - Departure Disposition: Home, Routine, Self-Care Clinical Impression: Left hip pain Condition: Good Instructions: Hip Pain (ED) Additional Instructions: Follow up with an weapons specialist within one week. Return to the emergency department for worsening pain, swelling, numbness, weakness or other concerns. - Carmella seguimiento con un ortopedista dentro de gael semana. - Regrese a la angélica de emergencia si el dolor empeora, si tiene inchazon, entumecimiento, debilidad u otra preocupacion. Referrals: Guy Wang MD [Medical Doctor] - As per Instructions Report Scribed for: Jeff Johnston Report Scribed by: Marilu Ayala Date of Report: 02/25/18 Time of Report: 19:47 Physician Review and Approval Statement: Portions of this note were transcribed by an ED scribe. I personally performed the history, physical exam, and medical decision making; and confirm the accuracy of the information in the transcribed note.
[2018-02-25 21:41] VITALS: BP 110/67
== END 2018-02-25 21:41 | disposition home or self-care (01) ==
LOC: EDUNIT#
DX: M25.552 Pain in left hip (principal); G30.9 Alzheimer's disease, unspecified; F02.80 Dementia in other diseases classified elsewhere, unspecified severity, without behavioral disturbance, psychotic disturbance, mood disturbance, and anxiety; I10 Essential (primary) hypertension; W19.XXXA Unspecified fall, initial encounter; Y92.009 Unspecified place in unspecified non-institutional (private) residence as the place of occurrence of the external cause; Y93.9 Activity, unspecified; Y99.9 Unspecified external cause status

== ENCOUNTER → 2018-04-30 | Outpatient (CLI) | payer OTHER, MEDICAID | LOC: FIMAGING 09:05 | PROVIDERS: ATTEND Physician Assistant | DX: M48.54XD Collapsed vertebra, not elsewhere classified, thoracic region, subsequent encounter for fracture with routine healing (principal); M43.8X6 Other specified deforming dorsopathies, lumbar region; M53.87 Other specified dorsopathies, lumbosacral region | CPT/HCPCS: 78320; A9503 ==

== ENCOUNTER 2018-07-03 19:23 | Emergency (ER) | payer OTHER ==
--- NOTE | 2018-07-03 19:39 | EDPHY ---
HPI/HX/ROS/PE/MDM Narrative: CHIEF COMPLAINT: Back pain, rash HPI: This patient is a Guamanian-speaking 83 year old female with history of Alzheimer' s, GERD, hypertension, depression. She complains of atraumatic back pain, worsening for 3-4 days. This is primarily in the lower right side. She has increased pain with movement. Her daughter at bedside notes she was diagnosed with pyelonephritis about two weeks ago and has been taking antibiotics for this. She denies any known fever, but notes the patient did take an extended shower after complaining of feeling warm. Today, the patient developed a rash on her legs and her torso as well as itching in her hands. Her daughter notes this has happened in the past. She has additionally has complained of discomfort /tenderness in the area of her right breast. Denies chest pain, difficulty breathing, vomiting, diarrhea, recent trauma. HPI obtained primarily from patient's daughter as well as can filling and closing machine tender at bedside. REVIEW OF SYSTEMS: A comprehensive 10 system review of systems is otherwise negative aside from elements mentioned in the history of present illness and medical decision making. PMH: Alzheimer's, GERD, hypertension, depression. SOCIAL HISTORY: Guamanian-speaking. Daughter at bedside. Lives at home with her family. PHYSICAL EXAM: General:Patient is alert, in no acute distress. ENT:Eyes are normal to inspection. ENT inspection normal. Neck: Normal inspection. Full range of motion. Respiratory:No respiratory distress. Breath sounds normal bilaterally. Cardiovascular: Regular rate and rhythm. Strong peripheral pulses. Normal cap refill. Abdomen:The abdomen is nontender to palpation. There are no peritoneal signs. There are normal bowel sounds. Back: Normal to inspection. No tenderness to palpation. Skin: Normal color. Fine, lacy erythema on bilateral forearms. Warm and dry. Extremities: Normal appearance. Full range of motion. Neuro: Oriented x3. Normal motor function. Normal sensory function. ED Course: 83 y/o female presents with right-sided low back pain as well as complaints of a pruritic rash. Fine lacy erythema observed on the patients bilateral forearms. No evidence of rash on the legs or torso at this time. Plan for chest x-ray, laboratory studies including CBC, chemistries, liver, lipase, UA. Patient has reported history of recent UTI vs. pyelonephritis. Reviewed chest x-ray. Negative for acute processes. Evidence of osteopenia with age indeterminate mild midthoracic compression fractures and stable lower thoracic vertebral fractures since March 2018. See radiologist report for details. Patient complains of increased sensation of itching. Plan to administer 25mg IV Benadryl for symptom relief. Reviewed laboratory studies. WBC is not elevated at this time. UA pending. - Data Points Imaging Results: Imaging Impressions Chest X-Ray 07/03/18 19:59 Impression: 1. No acute findings in the chest. 2. Osteopenia with age indeterminate mild midthoracic compression fractures and stable lower thoracic vertebral fractures since March 2018. Imaging: I viewed and interpreted images myself Laboratory Results: Laboratory Results 07/03/18 20:04 07/03/18 20:04 07/03/18 07/03/18 07/03/18 21:25 20:04 20:04 WBC 4.99 10^3/uL 10^3/uL (3.80-9.50) RBC 3.85 10^6/uL L 10^6/uL (4.18-5.33) Hgb 11.6 g/dL L g/dL (12.6-16.3) Hct 34.1 % L % (38.0-47.0) MCV 88.6 fL fL (81.5-99.8) MCH 30.1 pg pg (27.9-34.1) MCHC 34.0 g/dL g/dL (32.4-36.7) RDW 13.3 % % (11.5-15.2) Plt Count 199 10^3/uL 10^3/uL (150-400) MPV 8.7 fL fL (8.7-11.7) Neut % (Auto) 79.8 % H % (39.3-74.2) Lymph % (Auto) 12.6 % L % (15.0-45.0) [place] % (Auto) 4.8 % % (4.5-13.0) Eos % (Auto) 2.4 % % (0.6-7.6) Baso % (Auto) 0.2 % L % (0.3-1.7) Nucleat RBC Rel Count 0.0 % % (0.0-0.2) Absolute Neuts (auto) 3.98 10^3/uL 10^3/uL (1.70-6.50) Absolute Lymphs (auto) 0.63 10^3/uL L 10^3/uL (1.00-3.00) Absolute Monos (auto) 0.24 10^3/uL L 10^3/uL (0.30-0.80) Absolute Eos (auto) 0.12 10^3/uL 10^3/uL (0.03-0.40) Absolute Basos (auto) 0.01 10^3/uL L 10^3/uL (0.02-0.10) Absolute Nucleated RBC 0.00 10^3/uL 10^3/uL (0-0.01) Immature Gran % 0.2 % % (0.0-1.1) Immature Gran # 0.01 10^3/uL 10^3/uL (0.00-0.10) Sodium 134 mEq/L L mEq/L (135-145) Potassium 5.8 mEq/L H mEq/L (3.5-5.2) Chloride 99 mEq/L mEq/L (97-110) Carbon Dioxide 21 mEq/l L mEq/l (22-31) Anion Gap 14 mEq/L mEq/L (6-14) BUN 16 mg/dL mg/dL (7-23) Creatinine 0.8 mg/dL mg/dL (0.6-1.0) Estimated GFR > 60 Glucose 102 mg/dL H mg/dL (70-100) Calcium 9.6 mg/dL mg/dL (8.5-10.4) Total Bilirubin 0.8 mg/dL mg/dL (0.1-1.4) Conjugated Bilirubin 0.5 mg/dL mg/dL (0.0-0.5) Unconjugated Bilirubin 0.3 mg/dL mg/dL (0.0-1.1) AST 41 IU/L IU/L (14-46) ALT < 6 IU/L L IU/L (9-52) Alkaline Phosphatase 99 IU/L IU/L (38-126) Total Protein 7.7 g/dL g/dL (6.3-8.2) Albumin 4.8 g/dL g/dL (3.5-5.0) Lipase 111 IU/L IU/L (23-300) Specimen Hemolysis 153 Urine Color YELLOW Urine Appearance CLEAR Urine pH 6.0 (5.0-7.5) Ur Specific Justice 1.013 (1.002-1.030) Urine Protein NEGATIVE (NEGATIVE) Urine Ketones NEGATIVE (NEGATIVE) Urine Blood NEGATIVE (NEGATIVE) Urine Nitrate NEGATIVE (NEGATIVE) Urine Bilirubin NEGATIVE (NEGATIVE) Urine Urobilinogen NEGATIVE EU EU (0.2-1.0) Ur Leukocyte Esterase NEGATIVE (NEGATIVE) Urine Glucose NEGATIVE (NEGATIVE) Medications Given: Discontinued Medications Diphenhydramine HCl (Benadryl Injection) 25 mg IVP EDNOW ONE Stop: 07/03/18 20:31 Last Admin: 07/03/18 21:09 Dose: 25 mg Prednisone (Prednisone) 40 mg PO EDNOW ONE Stop: 07/03/18 21:12 Last Admin: 07/03/18 21:30 Dose: 40 mg General Time Seen by Provider: 07/03/18 19:37 Initial Vital Signs: Initial Vital Signs Temperature (C) 37.2 C 07/03/18 19:38 Heart Rate 95 07/03/18 19:38 Respiratory Rate 18 07/03/18 19:38 Blood Pressure 129/68 H 07/03/18 19:38 O2 Sat (%) 96 07/03/18 19:38 O2 Delivery Mode Room Air Allergies/Adverse Reactions: No Known Allergies Allergy (Verified 07/03/18 19:36) Home Medications: Medication Instructions Recorded Aspirin [Aspirin 81mg (*)] 81 mg PO DAILY 12/22/17 Lisinopril [Zestril 20 mg (*)] 20 mg PO DAILY 12/22/17 Metoprolol Succinate Xr [Toprol Xl 50 mg PO DAILY 12/22/17 50 mg (*)] Pantoprazole Sodium [Protonix 40mg 40 mg PO DAILY 12/22/17 (*)] Ticagrelor [Brilinta] 90 mg PO BID 12/22/17 Acetaminophen [Tylenol ES 500 mg 1,000 mg PO Q8HRS tab 12/29/17 (*)] Lidocaine 4%/Menthol 1% [Icy Hot 1 patch TD DAILY patch 12/29/17 Lidocaine/Menthol 4%/1% Patch (*)] Tamsulosin HCl [Flomax 0.4 MG (*)] 0.4 mg PO DAILY #30 cap 12/29/17 predniSONE 40 mg PO DAILY #8 tab 07/03/18 Departure - Departure Disposition: Home, Routine, Self-Care Clinical Impression: Flank pain, Pruritic rash Condition: Good Instructions: Flank Pain (ED) Additional Instructions: Follow-up with your primary doctor within 72 hours. Return to the Emergency Department for fever, chest pain, shortness of breath, increasing pain or other worsening of condition. Take benadryl as directed in addition to steroid medication for itching. Referrals: Loren Tay MD [Primary Care Provider] - As per Instructions Prescriptions: predniSONE 40 mg PO DAILY #8 tab Report Scribed for: Jeff Johnston Report Scribed by: Marilu Ayala Date of Report: 07/03/18 Time of Report: 19:43 Physician Review and Approval Statement: Portions of this note were transcribed by an ED scribe. I personally performed the history, physical exam, and medical decision making; and confirm the accuracy of the information in the transcribed note.
[2018-07-03 20:14] LABS: PLATELET COUNT 199 10^3/uL (150-400)
[2018-07-03] MEDS ORDERED: predniSONE 20 MG TAB PO ONE (21:11)
[2018-07-03 22:02] VITALS: BP 124/69
== END 2018-07-03 21:57 | disposition home or self-care (01) ==
DX: M54.5 Low back pain (principal); L29.9 Pruritus, unspecified; I10 Essential (primary) hypertension; F32.9 Major depressive disorder, single episode, unspecified; G30.9 Alzheimer's disease, unspecified; F02.80 Dementia in other diseases classified elsewhere, unspecified severity, without behavioral disturbance, psychotic disturbance, mood disturbance, and anxiety
CPT/HCPCS: 71046; 96374; 99284; J1200; J7512

== ENCOUNTER 2018-07-29 14:39 | Emergency (ER) | payer OTHER | END 2018-07-29 15:00 | disposition left against medical advice (07) ==